=== PATIENT | male | born 1990 | race Caucasian/White ===

== ENCOUNTER 2024-05-05 15:43 | Emergency (ER) | payer BC, SELFPAY ==
--- NOTE | ~2024-05-05 | CT_ITS ---
EXAMINATION: CT ABDOMEN AND PELVIS WITH CONTRAST CLINICAL INFORMATION: Abdominal pain. COMPARISON: None available. TECHNIQUE: Multidetector volumetric images were obtained from the superior aspect of the liver through the pubic symphysis following administration 85 mL of Omnipaque 350 intravenous contrast. Sagittal and coronal reformatted images were obtained on the technologist's workstation. Oral contrast: None This CT examination was performed using dose optimization techniques as appropriate, variously including the following: *Automated exposure control *Adjustment of mA and/or kV according to patient size (this includes techniques or standardized protocols for targeted exams where dose is matched to indication/reason for exam; i.e. extremities or head) *Use of iterative reconstruction technique DLP: 447 mGy-cm FINDINGS: LUNG BASES: The visualized lung bases are unremarkable. LIVER, GALLBLADDER, AND BILIARY TREE: The liver is normal in size, shape, and attenuation. No focal hepatic lesion or biliary ductal dilatation is present. The gallbladder is unremarkable with no evidence of radiopaque gallstones, gallbladder wall thickening, or obvious pericholecystic inflammatory changes. PANCREAS: Unremarkable. SPLEEN: Incidental note is made of a 1.6 cm rounded focus that is isodense to spleen along the posteromedial margin of the spleen close proximity to the superior pole of the left kidney. This findings are overwhelmingly likely to represent a splenic nodule is finding does not appear to be intrinsic to the left kidney (series 6 image 57). ADRENAL GLANDS: Unremarkable. KIDNEYS AND URETERS: The kidneys are normal in size, shape, and attenuation. No hydronephrosis, hydroureter, or calculi seen. No perinephric stranding. BLADDER: Unremarkable. GASTROINTESTINAL TRACT: The appendix is normal in appearance. No intestinal dilatation or mural thickening identified. No free intraperitoneal fluid or gas collections. Normal appearance of the sigmoid mesentery and small bowel mesentery. Normal appearance of the stomach and duodenum. ABDOMINAL WALL: No significant hernia is appreciated. LYMPH NODES: Normal. VASCULAR: Unremarkable. PELVIC VISCERA: Normal appearance of the prostate and seminal vesicles OSSEOUS STRUCTURES: A transitional vertebral body is present at the lumbosacral junction is presumed to represent L5. The presumed L5 vertebral body demonstrates partial bilateral sacralization and exhibits a right L5-S1 pseudarthrosis with pseudoarthrosis bridging. CT/CT abdomen pelvis w IV con IMPRESSION: 1. No acute abnormalities identified. 2. Normal appendix. Normal appearance of the kidneys. No urolithiasis. No free intraperitoneal fluid or gas collections. 3. Transitional vertebral body at the lumbosacral junction presumed to represent L5 with partial bilateral sacralization. 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 Electronically signed by: Olvin Hernández MD 05/05/2024 11:38 PM [facility]
[2024-05-05 16:16] VITALS: BP 99/65; PULSE 82; RESP 20; TEMP 36.4; O2SAT 97; BMI 24.1
--- NOTE | 2024-05-05 16:17 | ED.GENADULT ---
HPI - General Adult General Stated complaint: rectal bleeding-GI issues Related Data Allergies Allergy/AdvReac Type Severity Reaction Status Date / Time No Known Allergies Allergy Verified 05/05/24 16:18 Course Course Course Narrative: This is a Rapid Medical Examination (RME) performed by Greg Chase PA-C in triage. Full HPI, ROS, assessment and treatment plan per primary provider in the Main ED. 33 yo male here for eval of diarrhea, rectal bleeding, abdominal bloating x2 weeks. saw pcp recently, advised to come to ED for scan. no abd pain. no fevers, NV. familial hx of crohns. Plan: labs, OBS, will defer imaging to primary provider Discharge Plan Discharge Print Language: Occitan
[2024-05-05 17:09] LABS: MANUAL DIFF FLAG NO
[2024-05-05 17:12] LABS: Basophils Absolute Auto 0.1 X10*3/uL (0.0-0.2); Basophils Percent Auto 1.3 % (0-2); Eosinophils Absolute Auto 0.2 X10*3/uL (0.0-0.4); Hematocrit 45.2 % (42.0-52.0); Hemoglobin 16.3 g/dl (14.0-18.0); Imm Gran Abs Auto 0.01 X10*3/uL (0.00-0.03); Imm Gran Pct Auto 0.1 % (0.0-0.4); Lymphocytes Absolute Auto 2.4 X10*3/uL (1.2-4.9); Mean Corpuscular HGB Conc 36.1 g/dl (31.0-36.0); Mean Corpuscular Hemoglobin 29.4 pg (27.0-33.0); Mean Corpuscular Volume 81.4 fL (80.0-98.0); Mean Platelet Volume 8.8 fL (9.4-12.4); Monocytes Absolute Auto 0.7 X10*3/uL (0.1-1.2); Monocytes Percent Auto 9.1 % (2-11); Neutrophils Absolute Auto 4.5 x10*3/uL (2.0-8.3); Neutrophils Percent Auto 56.5 % (45-73); Platelet Count 326 X10*3/uL (160-400); Red Blood Count 5.55 X10*6/uL (4.60-5.80); Red Cell Distribution Width 12.9 % (11.0-16.0); White Blood Count 7.9 X10*3/uL (4.8-10.8)
[2024-05-05 17:31] LABS: Albumin Level 4.7 g/dL (3.5-5.0); Alkaline Phosphatase 55 U/L (39-117); Anion Gap 10 (12-20); Aspartate Amino Transferase 27 U/L (5-37); Bilirubin Total 0.4 mg/dL (0.0-1.0); Blood Urea Nitrogen 19 mg/dL (9-16); Calcium 9.9 mg/dL (8.4-10.2); Carbon Dioxide 28 mmol/L (22-29); Chloride 103 mmol/L (96-108); Creatinine Clr Calc Pharmacy 151.7; Estimated Glomerular Filt Rate > 60; Glucose Random 92 mg/dL (60-115); Lipase 22 U/L (8-78); Potassium 4.3 mmol/L (3.3-5.1); Sodium 137 mmol/L (135-145); Total Protein 7.8 g/dL (6.5-8.0)
[2024-05-05 17:50] LABS: Alanine Aminotransferase 39 U/L (0-40)
[2024-05-05 18:33] VITALS: BP 124/80; PULSE 68; RESP 16; O2SAT 98
--- NOTE | 2024-05-05 19:06 | ED.GIBLEED ---
HPI - GI Bleed General Chief complaint: GI Bleed Stated complaint: rectal bleeding-GI issues Time Seen by Provider: 05/05/24 18:33 History of Present Illness HPI Narrative: Patient is a 33-year-old male with a history of having some diarrhea mixed with blood last week. This week patient has been noticing paste to solid stool still have a little bit of blood in the toilet. Some blood when he wipes. He has been exercising regularly without any difficulties. No chest pain or shortness of breath no diaphoresis. Not on blood thinners. Patient is from home. No coughing or congestion or upper respiratory symptoms. No travel history. Related Data Allergies Allergy/AdvReac Type Severity Reaction Status Date / Time No Known Allergies Allergy Verified 05/05/24 16:18 Review of Systems Review of Systems: Positive blood mixed with stool Yes all other systems are reviewed and are negative PMFSH Past Medical History Attestation statement: The following information was validated with the patient. Social History Social History Smoked in Last 30 Days: No Advance Directives: No Advance Directives Information Provided: No Physical Exam Vital Signs: Vital Signs: Last Vital Signs Temp 98.2 F 05/05/24 22:00 Pulse 63 05/05/24 22:00 Resp 18 05/05/24 22:00 BP 120/82 05/05/24 22:00 Pulse Ox 97 05/05/24 22:00 O2 Del Method Room Air 05/05/24 22:00 BMI result Body Mass Index 24.1 Appearance: Alert. Oriented X3. No acute distress. Eyes: Pupils equal, round and reactive to light. ENT: Pharynx normal. Neck: Normal inspection. Neck supple. No lymph nodes noted. No crepitus CVS: Normal heart rate and rhythm. Pulses normal. Normal S1 and S2 Respiratory: No respiratory distress. Breath sounds normal. No Wheezing. No rales Abdomen: Soft and nontender. No rigidity. No distention. good BS x4 Skin: Skin warm and dry. Normal skin color. Normal skin turgor. Extremities: No lower extremity edema. Neurovascular intact to all extremities. No Lacerations. No Rash Neuro: Oriented X 3. No motor deficit. No sensory deficit. Moving all extermities. No slurred speech Medications Administered Discontinued Medications Generic Name Dose Route Start Last Admin Trade Name Matt PRN Reason Stop Dose Admin Iohexol 100 ml 05/05/24 19:45 05/05/24 19:45 Iohexol 350 Mg/Ml 100 Ml Infus..Btl IV 05/05/24 19:46 85 ml ONCE ONE Administration Medical Decision Making Medical Decision Making [facility] Narrative: Patient is 33 years old presents today with having abdominal bloating. Having some blood mixed with stool. Was seen by his primary came in for additional CT scan of the abdomen. Patient denies any generalized malaise weakness. Not on blood thinners. The abdominal exam was soft nontender to me. The white count is normal. Patient's hemoglobin is 16 there is no signs of anemia. CT scan is ordered currently no distress. CT scan showed the following 1. No acute abnormalities identified. 2. Normal appendix. Normal appearance of the kidneys. No urolithiasis. No free intraperitoneal fluid or gas collections. 3. Transitional vertebral body at the lumbosacral junction presumed to represent L5 with partial bilateral sacralization. 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 No acute finding. Will discharge patient home close follow-up on an outpatient basis. Hemoglobin is 16 there is no evidence for anemia. Patient's stool is hard. Rectal exam did show some trace blood will need follow-up on an outpatient basis there was hemorrhoid present. Differential Diagnosis Differential Diagnoses: The differential diagnosis associated with the presentation includes Abdominal pain, hemorrhoidal bleed, colitis Admission/Observation Consideration of admission/observation: Escalation of care including admission/observation considered Lab Data 05/05/24 17:00 05/05/24 17:00 Labs: Lab Results 05/05/24 05/05/24 Range/Units 17:00 19:00 WBC 7.9 (4.8-10.8) X10*3/uL RBC 5.55 (4.60-5.80) X10*6/uL Hgb 16.3 (14.0-18.0) g/dl Hct 45.2 (42.0-52.0) % MCV 81.4 (80.0-98.0) fL MCH 29.4 (27.0-33.0) pg MCHC 36.1 H (31.0-36.0) g/dl RDW 12.9 (11.0-16.0) % Plt Count 326 (160-400) X10*3/uL MPV 8.8 L (9.4-12.4) fL Immature Gran % (Auto) 0.1 (0.0-0.4) % Neut % (Auto) 56.5 (45-73) % Lymph % (Auto) 30.0 (20-40) % Bleck[place] % (Auto) 9.1 (2-11) % Eos % (Auto) 3.0 (0-4) % Baso % (Auto) 1.3 (0-2) % Lymph # (Auto) 2.4 (1.2-4.9) X10*3/uL Bleckley # (Auto) 0.7 (0.1-1.2) X10*3/uL Eos # (Auto) 0.2 (0.0-0.4) X10*3/uL Baso # (Auto) 0.1 (0.0-0.2) X10*3/uL Abs Immat Gran (auto) 0.01 (0.00-0.03) X10*3/uL Absolute Neuts (auto) 4.5 (2.0-8.3) x10*3/uL Absolute Nucleated RBC 0.000 (0.0-0.012) X10*3/uL Nucleated RBC % (auto) 0.0 (0.0-0.2) /100WBC Sodium 137 (135-145) mmol/L Potassium 4.3 (3.3-5.1) mmol/L Chloride 103 (96-108) mmol/L Carbon Dioxide 28 (22-29) mmol/L Anion Gap 10 L (12-20) BUN 19 H (9-16) mg/dL Creatinine 0.79 (0.5-1.4) mg/dL Estim Creat Clear Calc 151.7 Estimated GFR > 60 Random Glucose 92 (60-115) mg/dL Calcium 9.9 (8.4-10.2) mg/dL Magnesium 2.0 (1.6-2.6) mg/dL Total Bilirubin 0.4 (0.0-1.0) mg/dL AST 27 (5-37) U/L ALT 39 (0-40) U/L Alkaline Phosphatase 55 (39-117) U/L Total Protein 7.8 (6.5-8.0) g/dL Albumin 4.7 (3.5-5.0) g/dL Lipase 22 (8-78) U/L Stool Occult Blood POSITIVE (NEGATIVE) Discharge Plan Discharge Clinical Impression: Hemorrhoids, RB (rectal bleeding) Patient Disposition: Home, Self-Care Instructions: Hemorrhoids (DC), Gastrointestinal Bleeding (ED) Referrals: Shahid Tolliver MD [Physician] - 05/07/24 Papo Gifford MD [Primary Care Provider] - 05/07/24 Print Language: Togolese
[2024-05-05 19:12] LABS: OBS Int Ctl Valid YES; OBS1 POSITIVE (NEGATIVE)
[2024-05-05 19:17] VITALS: BP 125/76; BP 126/84; PULSE 67; PULSE 70
[2024-05-05 19:19] VITALS: BP 121/84; PULSE 81
[2024-05-05 19:20] VITALS: BP 125/76; PULSE 67; RESP 18; TEMP 36.8; O2SAT 97
--- NOTE | 2024-05-05 19:21 | MHC.EDTECH ---
This tech took over care of patient at 1900,rounded and introduced self to pt,orthostatic vitals taken per order, patient appears to be comfortable,call [facility]alta in reach
[2024-05-05] MEDS: iohexoL 350 MG/ML 100 ML INFUS..BTL IV (19:45)
[2024-05-05 22:00] VITALS: BP 120/82; PULSE 63; RESP 18; TEMP 36.8; O2SAT 97
--- NOTE | 2024-05-05 22:08 | MHC.EDTECH ---
Hourly rounds and vitals completed,patient is watching TV,resting quietly,call [facility] in reach
[2024-05-06 00:20] VITALS: BP 118/58; PULSE 72; RESP 16; TEMP 36.7; O2SAT 96
== END 2024-05-06 00:22 | disposition home or self-care (01) ==
PROVIDERS: Physician Assistant Medical; Emergency Provider Emergency Medicine Emergency Medical Services; PCP Internal Medicine
DX: K64.9 Unspecified hemorrhoids (principal); K62.5 Hemorrhage of anus and rectum
CPT/HCPCS: 36415; 74177; 80053; 82272; 83690; 83735; 85025; 99284; 99285; Q9967